=== PATIENT | male | born 1945 | race Caucasian/White ===

== ENCOUNTER → 2023-12-27 06:09 | Day surgery (SDC) | payer OTHER, SELFPAY ==
[2023-12-27] VITALS (12 sets, daily range): BP systolic 123–149; BP diastolic 50–86; BMI 24.7
[2023-12-27 07:34] LABS: Glucose - Point of Care 128 mg/dl (70-99)
[2023-12-27 08:18] LABS: INR 2.77; PT 29.2 Sec (11.4-14.6)
--- NOTE | 2023-12-27 10:07 | ITS.CL.PACE ---
[employer] - Pacemaker Implant
Pacemaker Implant
Procedure Report:
Date of Procedure: December 27, 2023.
Procedure: Pacemaker Implantation.
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 Permanent AFib with a very slow ventricular response.
Performing physician: Harrison Alfaro MD., [facility].
Implants:
Pulse Generator: Medtronic; Model# W1DR01; Serial# [id number].
RV Lead: Medtronic; Model# 3830-69cm; Serial# [id number].
Technique: A time out was performed. The procedure site was identified. The patient was anesthetized by the anesthesia service. Preoperative cefazolin was administered. The patient was prepped and draped in the usual fashion. Local anesthetic was
applied to the left prepectoral subcutaneous tissue. A 3 inch incision was made along the left deltopectoral groove. Dissection was carried to the fascia. The left cephalic vein was easily isolated and proximal and distal control with 2-0 Vicryl
suture. Using a micropuncture needle to access the cephalic vein under direct visualization a wire was advanced into the central circulation. A 7 Fr hemostatic peel away introducer sheath was placed. The RV lead was placed using utilizing the
[employer] His delivery catheter ([id number]) that was advanced to the left bundle area as confirmed by fluoroscopy in the GINA and ADAMS projections. The lead tip was advanced. PVC morphology was reviewed. When a satisfactory location was identified (W
pattern observed) the lead was screwed into position with serial turns. Septal engagement was confirmed with gentle torque applied to the guide sheath. After each series of turns (2-3) unipolar sensed morphology and impedance, and paced morphology
of V1 was analyzed. The lead was further advanced until satisfactory morphology and electrical characteristics were confirmed. The RV lead was placed in the third location evaluated. The long guiding sheath was cut and removed from the RV without
change in lead position, impedance, sensing, or capture. The lead was sutured to the underlying pectoralis fascia with 0-silk suture. 8 volt pacing from each lead did not capture the diaphragm. A subcutaneous pocket was created with Bovie cautery.
Hemostasis was excellent. The lead was appropriately attached to the device. The pocket was irrigated with antibiotic solution. The device and leads were placed in the pocket. The incision was closed in three layers with absorbable suture.
Steri-strips and a silver impregnated dressing were placed. Estimated blood loss was less 5 ml. There were no complications. Fluoroscopy time 7.1 minutes and DAP 3.48 GyCM2. The device was then interrogated after skin closure. No IV contrast was
administered.
Lead Analysis:
RV lead (bipolar): R: 5.9 mV; Threshold: 1.25 V @ 0.4 ms; Impedance: 741 ohms.
RV lead (unipolar): R: 7.1 mV; Threshold: 0.75 V @ 0.4 ms; Impedance: 570 ohms.
Paced QRS characteristics: V1 has QR morphology and measures 115 ms in duration, LVAT (stim to peak V5/V6) is 88 ms, and R peak V1 to R peak V6 is 39 ms.
Final Programming: MVP (AAIR to DDDR) 60-130 bpm.
Conclusion: Uncomplicated Medtronic pacemaker implant. The pacing system is MRI conditional. Successful selective left bundle pacing lead placement.
Recommendation: Routine post pacemaker care.
cc: Bozena Hartman MD and Rocco Cortes DO.
[2023-12-27] MEDS: TYLENOL 650 MG PO (10:38)
[2023-12-27 10:53] LABS: Glucose - Point of Care 121 mg/dl (70-99)
--- NOTE | 2023-12-27 13:46 | W.PN.UPDATE ---
Update Note
Progress Note Update
78 yo WM s/p SCC PPM (same day). He feels good, no cp, sob, jeffrey diet, EKG vpaced, CXR had ? Left apical PTX but reviewed with Dr. Alfaro who did a cut down, so no risk of PTX and pt asymptomatic. Activity restrictions reviewed. He will f/u inc check
in 1 week. He is for d/c home after 2pm.
Conclusion: Uncomplicated Medtronic pacemaker implant. The pacing system is MRI conditional. Successful selective left bundle pacing lead placement.
Recommendation: Routine post pacemaker care.
cc: Bozena Hartman MD and Rocco Cortes DO.
[2023-12-27] MEDS: ANCEF 5 IV (14:02)
== END | disposition home or self-care (01) ==
LOC: CATH 06:09
PROVIDERS: ATTENDING PHYSICIAN Internal Medicine Cardiovascular Disease; FAMILY PHYSICIAN Internal Medicine; OTHER PHYSICIAN Internal Medicine Cardiovascular Disease
DX: I48.21 Permanent atrial fibrillation (principal); I44.2 Atrioventricular block, complete; I10 Essential (primary) hypertension; R55 Syncope and collapse; R00.1 Bradycardia, unspecified
CPT/HCPCS: 33207; 71045; 82962; 85347; 85610; 93005; 93460; C1725; C1753; C1769; C1786; C1874; C1887; C1892; C1894; C1898; C9600; Q9967